=== PATIENT | female | born 1995 | race Caucasian/White ===

== ENCOUNTER 2019-04-28 10:27 | Emergency (ER) | payer OTHER, SELFPAY ==
[2019-04-28 10:35] VITALS: BP 126/70; PULSE 98; RESP 18; TEMP 36.8; O2SAT 98; BMI 23.0
--- NOTE | 2019-04-29 07:02 | ED.ALLEREA ---
HPI - Allergic Reaction General Chief complaint: Allergic Reaction Stated complaint: Possible allergic reaction to medication,Hives Time Seen by Provider: 04/28/19 11:55 Source: patient Mode of arrival: Family Vehicle Limitations: no limitations History of Present Illness HPI narrative: CC: LWOT HPI: This patient was not seen by me. The patient was not interviewed, evaluated, or examined. The patient left without treatment. Related Data Home Medications Medication Instructions Recorded Confirmed metoprolol tartrate 25 mg PO BID 04/28/19 04/28/19 pseudoephedrine HCl 60 mg PO Q4-6H PRN 04/28/19 04/28/19 Allergies Allergy/AdvReac Type Severity Reaction Status Date / Time Penicillins Allergy Unknown Verified 04/28/19 10:43 Patient History Social History Smoking Status: Never smoker Smoking Status: Never smoker alcohol intake frequency: a few times a month Substance Use Type: does not use Exam Initial Vital Signs Initial Vital Signs: Vital Signs Temperature 98.2 F 04/28/19 10:35 Pulse Rate 98 H 04/28/19 10:35 Respiratory Rate 18 04/28/19 10:35 Blood Pressure 126/70 04/28/19 10:35 Pulse Oximetry 98 04/28/19 10:35 Discharge Plan Departure Patient Disposition: Left Without Being Seen Clinical Impression: Patient left without being seen Discharge Date/Time: 04/28/19 12:07
== END 2019-04-28 12:07 | disposition left against medical advice (07) ==
PROVIDERS: Emergency Provider Emergency Medicine
DX: R21 Rash and other nonspecific skin eruption (principal)
CPT/HCPCS: 99281